=== PATIENT | female | born 1985 | race Caucasian/White ===

== ENCOUNTER 2022-11-07 18:10 | Emergency (ER) | payer SELFPAY ==
[2022-11-07] MEDS ORDERED: Acetaminophen 500 MG TAB ONE (18:45)
[2022-11-07 19:37] LABS: SARS-CoV-2 NAA Rapid Test Not Detected (NotDetected)
== END 2022-11-07 19:40 | disposition home or self-care (01) ==
LOC: MADERS 18:10
DX: J10.1 Influenza due to other identified influenza virus with other respiratory manifestations (principal); F17.290 Nicotine dependence, other tobacco product, uncomplicated
CPT/HCPCS: 87804; 99283; U0002